=== PATIENT | female | born 1950 | race Caucasian/White ===

== ENCOUNTER 2021-06-09 09:40 | Outpatient (CLI) | payer MEDICARE, SELFPAY ==
--- NOTE | ~2021-06-09 | XR_ITS ---
EXAMINATION: XR abdomen/kub 1V INDICATION: Calculus of the kidney TECHNIQUE: Supine views of the abdomen were obtained on 2 radiographs. COMPARISON: 02/12/2014 FINDINGS: There are phleboliths in the pelvis. No urolithiasis is identified. The bowel gas pattern i s normal. Surgical clips in the right upper quadrant are likely from prior cholecystectomy. The visua lized lung bases are clear. There is severe lumbar spondylosis. IMPRESSION: 1. No urolithiasis identified. Reviewed, dictated and finalized at location F. [employer]
== END 2021-06-09 09:41 | disposition home or self-care (01) ==
LOC: ANHIMG 09:46
PROVIDERS: PCP Internal Medicine; Visit Provider Urology
DX: N20.0 Calculus of kidney (principal); M47.816 Spondylosis without myelopathy or radiculopathy, lumbar region
CPT/HCPCS: 74018

== ENCOUNTER 2023-06-28 09:33 | Outpatient (CLI) | payer OTHER, MEDICARE, SELFPAY ==
--- NOTE | ~2023-06-28 | XR_ITS ---
EXAMINATION: XR abdomen/kub 1V DATE: 06/28/2023 09:57 INDICATION: Calculus of kidney. TECHNIQUE: A supine view of the abdomen on 2 radiographs was obtained. COMPARISON: Abdomen radiographs 06/09/2021 FINDINGS: There are no dilated loops of bowel. The kidneys are obscured by bowel. Surgical clips in t he right upper quadrant are likely from cholecystectomy. There are phleboliths in the pelvis. There i s an 8 mm density in left pelvis. IMPRESSION: 1. 8 mm density in left pelvis not seen on prior images that may be a distal left ureteral stone or b owel contents. Reviewed, dictated and finalized at location A. IMPRESSION: 1. 8 mm density in left pelvis not seen on prior images that may be a distal le ft ureteral stone or bowel contents.
== END 2023-06-28 09:34 | disposition home or self-care (01) ==
LOC: ANHIMG 09:46
PROVIDERS: PCP Internal Medicine; Visit Provider Urology
DX: N20.0 Calculus of kidney (principal)
CPT/HCPCS: 74018